=== PATIENT | female | born 1990 | race Caucasian/White ===

== ENCOUNTER 2019-03-19 21:33 | Observation (INO) | payer OTHER, SELFPAY ==
[2019-03-19 21:55] VITALS: BP 134/95; PULSE 90
[2019-03-19 22:00] VITALS: BP 133/88; PULSE 93
[2019-03-19 22:15] VITALS: BP 132/93; PULSE 90
[2019-03-19 23:00] VITALS: BMI 27.3
[2019-03-19 23:53] VITALS: TEMP 36.6
[2019-03-19 23:54] VITALS: BP 129/86; PULSE 87
--- NOTE | 2019-03-20 00:47 | OBADM ---
This patient, Rosa Sawant, admitted to the OB room Labor/Delivery/Recovery 105 for observation. Patient/family oriented to hospital policies and general routines including ID bracelet, bed and alarms, visiting hours, pain management, procedures, bathroom and other care routines, personal items, smoking policy, room service/diet, and visiting hours. Patient/Family are encouraged to report perceived risks to care and to ask questions if they do not understand what they are told or what they should do.
--- NOTE | 2019-04-02 12:06 | PM.OBTRLD ---
OB - Triage/Final Diagnosis Visit Information Reason for evaluation: threatened labor
== END 2019-03-20 00:40 | disposition home or self-care (01) ==
PROVIDERS: Admitting Provider Obstetrics & Gynecology; Visit Provider Obstetrics & Gynecology
DX: O47.1 False labor at or after 37 completed weeks of gestation (principal); Z3A.38 38 weeks gestation of pregnancy
CPT/HCPCS: G0378; G0379

== ENCOUNTER 2019-03-21 07:29 | Inpatient (IN) | payer OTHER, SELFPAY ==
[2019-03-21] VITALS (95 sets, daily range): BP systolic 92–147; BP diastolic 43–101; PULSE 77–133; RESP 16; TEMP 36.5–37.2; O2SAT 97–100; BMI 28.0
--- NOTE | 2019-03-21 07:58 | WPDOBADMIT ---
Obstetrics - Admit Note Admission Note: record reviewed. No pertinent additions to the history and/or any subsequent changes in the physical findings that are not consistent with the expected course of the were found. Additions to the history and/or subsequent changes in the physical findings follow. Here for MIL for gestational HTN at 38 3/7 wks. Cervix 4-5/50/-2 AROM with clear fluid.
[2019-03-21 08:12] LABS: Basophils Absolute Auto 0.1 K/mm3 (0.0-0.1); Basophils Percent Auto 0.5 % (0.2-1.2); Eosinophils Absolute Auto 0.2 K/mm3 (0-0.3); Eosinophils Percent Auto 2.2 % (0-4.4); Hematocrit 39.7 % (37.0-47.0); Hemoglobin 13.5 g/dL (12.0-15.0); Immature Granulocyte Absolute 0.05 K/mm3 (0.00-0.031); Immature Granulocyte Percent A 0.5 % (0-0.5); Immature Platelet Fraction Pct 16.6 % (0.9-11.2); Lymphocytes Absolute Auto 2.61 K/mm3 (0.9-3.2); Lymphocytes Percent Auto 24.4 % (18.3-44.2); Mean Corpuscular Hemoglobin 30.7 pg (26-34); Mean Corpuscular Volume 90.2 fl (80-100); Mean Platelet Volume 12.7 fl (7.4-10.4); Monocytes Absolute Auto 0.9 K/mm3 (0.1-0.6); Monocytes Percent Auto 7.9 % (2.6-8.5); Neutrophils Absolute Auto 6.9 K/mm3 (1.3-6.7); Neutrophils Percent Auto 64.5 % (45.5-73.1); Platelet Count Result 163 k/mm3 (150-375); Red Cell Distribution Width 13.2 % (11.5-14.5); White Blood Count 10.7 K/mm3 (4.5-10.0)
[2019-03-21 08:22] LABS: Alanine Aminotransferase 22 U/L (4-35); Albumin Level 4.4 g/dL (3.5-5.1); Alkaline Phosphatase 260 U/L (38-126); Aspartate Amino Transferase 37 U/L (14-36); Bilirubin,Total 0.7 mg/dL (0.2-1.3); Blood Urea Nitrogen 5 mg/dL (7-17); Calcium 11.9 mg/dL (8.4-10.2); Carbon Dioxide 23 mmol/L (22-30); Chloride 102 mmol/L (98-107); Estimated Glomerular Filt Rate 58; Glucose 74 mg/dL (65-105); Potassium 3.4 mmol/L (3.4-5.0); Sodium 137 mmol/L (137-145)
[2019-03-21] MEDS: LACTATED RINGERS 1,000 ML 125 ML IV CONT ×2 (08:23→08:54)
[2019-03-21] MEDS: ONDANSETRON INJ 4 MG/2 ML VIAL IV PUSH (08:24)
--- NOTE | 2019-03-21 08:47 | LDADM ---
This patient, Rosa Sawant, was admitted to Labor/Delivery/Recovery 109 on 03/21/19 at 07:29. Plans for labor, pain management and were discussed with patient. Patient/family oriented to hospital policies and general routines including ID bracelet, bed and alarms, visiting hours, pain management, procedures, bathroom and other care routines, personal items, smoking policy, room service/diet and guest tray routines, security routines, and visiting hours. Patient/Family are encouraged to report perceived risks to care and to ask questions if they do not understand what they are told or what they should do. See OBIX for further documentation.
--- NOTE | 2019-03-21 11:44 | PM.OBPRVD ---
OB - Delivery Note Procedure Delivery date: 03/21/19 Procedure: events: Induced HTN Intrapartal events: None Induction method: AROM and per pitocin protocol Delivery monitor: external FHT and external uterine Route of delivery: Laceration description: Periurethral - 2nd Degree Delivery repair: vicryl Specimen: Yes Estimated blood loss (mL): 100 Anesthesia type: Epidural Disposition: floor Baby Weeks of gestation at delivery: 38 Infant gender: Female presentation: vertex Placenta delivery description: Spontaneous cord vessel description: 3 Vessels score one minute: 9 score five minutes: 9
--- NOTE | 2019-03-21 11:46 | PM.DS ---
DS: Diagnosis Discharge Diagnosis (1) PIH ( induced hypertension): Code(s): O13.9 - Gestational [-induced] hypertension without significant proteinuria, unspecified trimester Status: Acute (2) (normal spontaneous vaginal delivery): Onset Date: ~03/21/19 Code(s): O80 - Encounter for full-term uncomplicated delivery Status: Acute (3) 38 weeks gestation of : Code(s): Z3A.38 - 38 weeks gestation of Status: Acute DS: Summary Time Spent with Patient Time attestation: Total time spent providing and/or coordinating discharge services: DS: Data Data Completed and Pending Labs on day of discharge: Labs from last 24 hours 03/21/19 03/21/19 03/21/19 08:04 08:04 08:04 WBC 10.7 H RBC 4.40 Hgb 13.5 Hct 39.7 MCV 90.2 MCH 30.7 MCHC 34.0 RDW 13.2 Plt Count 163 MPV 12.7 H Immature Gran % (Auto) 0.5 Neut % (Auto) 64.5 Lymph % (Auto) 24.4 [place] % (Auto) 7.9 Eos % (Auto) 2.2 Baso % (Auto) 0.5 Lymph # (Auto) 2.61 [place] # (Auto) 0.9 H Eos # (Auto) 0.2 Baso # (Auto) 0.1 Abs Immat Gran (auto) 0.05 H Absolute Neuts (auto) 6.9 H Absolute Nucleated RBC 0.0 Nucleated RBC % 0.0 % Immature Plt Fraction 16.6 H Sodium 137 Potassium 3.4 Chloride 102 Carbon Dioxide 23 BUN 5 L Creatinine 1.10 H Estim Creat Clear Calc Not Reportable Estimated GFR 58 L Glucose 74 Calcium 11.9 H Total Bilirubin 0.7 AST 37 H ALT 22 Alkaline Phosphatase 260 H Total Protein 8.0 Albumin 4.4 RPR Pending Blood Type Antibody Screen 03/21/19 08:03 WBC RBC Hgb Hct MCV MCH MCHC RDW Plt Count MPV Immature Gran % (Auto) Neut % (Auto) Lymph % (Auto) [place] % (Auto) Eos % (Auto) Baso % (Auto) Lymph # (Auto) [place] # (Auto) Eos # (Auto) Baso # (Auto) Abs Immat Gran (auto) Absolute Neuts (auto) Absolute Nucleated RBC Nucleated RBC % % Immature Plt Fraction Sodium Potassium Chloride Carbon Dioxide BUN Creatinine Estim Creat Clear Calc Estimated GFR Glucose Calcium Total Bilirubin AST ALT Alkaline Phosphatase Total Protein Albumin RPR Blood Type O Positive Antibody Screen Negative Discharge Plan Discharge Attending physician on discharge: Blanka Martinez Discharging Clinician: Waldo Adair Patient Disposition: Home, Self-Care Activity: pelvic rest Diet: regular Discharge Instructions: Education: Mom and Baby Guide Given to: Mother Follow-Up: Call your delivering provider's office for an appointment to be seen in: Call MD office for appointment Mom and baby should come to the [facility] for the follow-up appointment. Appointment Date/Time: March 23, 2019 at 8:00 am What to expect at your follow-up visit: Blood Pressure Check Physical Assessment Call [phone] if you are unable to keep your appointment time. BREAST CARE: 1. Wear a snug supportive bra. 2. For engorgement discomfort: Breast Feeding: A. Apply warm moist washcloths B. Express milk as needed to relieve engorgement C. Wear loose clothing 3. For sore nipples: A. Identify correct latch-on B. Apply warm moist washcloths before and after nursing C. Air dry nipples after nursing D. May apply [place] cream to nipples EPISIOTOMY/PERINEAL CARE: 1. Until bleeding stops, use your tiki bottle after urinating 2. Change your pad frequently throughout the day 3. You may take sitz baths several times a day (fill your bathtub with warm water and soak for 20 minutes.) Do NOT bathe in the water 4. No tub baths until seen by your physician - You may shower ACTIVITY: 1. Rest as much as possible. 2. Do not exercise or lift anything heavier than your baby (such as laundry or other children.) 3. Avoid stairs or
[2019-03-21] MEDS: IBUPROFEN 600 MG TABLET PO ×2 (13:36→20:39)
[2019-03-21] MEDS: BENZOCAINE 20% AER SPR (*SP) 56 GM CAN 1 SPRAY TOPICAL (13:37)
[2019-03-21] MEDS: WITCH HAZEL 40 PADS 1 PAD TOPICAL (13:37)
[2019-03-21] MEDS: ACETAMINOPHEN 325 MG TABLET 650 MG PO (14:49)
--- NOTE | 2019-03-21 14:55 | OBPPTRN ---
Patient transferred to post room # 1411 via wheelchair. Support person present. Oriented to unit, room, information board, rooming in, admission packet and security measures. Patient verbalizes understanding.
[2019-03-22] MEDS: IBUPROFEN 600 MG TABLET PO (04:27)
[2019-03-22 05:35] LABS: Hematocrit 27.6 % (37.0-47.0); Hemoglobin 9.4 g/dL (12.0-15.0)
[2019-03-22 08:05] VITALS: BP 129/83; PULSE 80; RESP 16; TEMP 37.3; O2SAT 99
[2019-03-22] MEDS: MULTIVIT/MIN/PREN/FOL AC/IRON TABLET 1 TAB PO (08:12)
[2019-03-22] MEDS: POLYSACCHARIDE IRON COMPLEX 150 MG CAPSULE PO (08:12)
[2019-03-22] MEDS: DOCUSATE SODIUM 100 MG CAPSULE PO (08:13)
[2019-03-22] MEDS: LANOLIN (LANSINOH) 7.5 GM CREAM 1 APPLIC TOPICAL (08:18)
[2019-03-22 10:48] LABS: Rapid Plasma Reagin Non-Reactive (NonReactive)
[2019-03-22 11:30] VITALS: BP 130/81; PULSE 82; RESP 16; TEMP 36.9; O2SAT 98
--- NOTE | 2019-03-22 13:00 | PC.NURSE ---
Consulted with patient, mother reports tenderness with feeding. Mother has latched shallow with a cradle positioning. Reviewed feeding cues, frequencies, duration of feedings, feeding elimination flow sheet, and signs of adequate intake. Reviewed positioning/alignment in cross cradle, holding breast in U hold and guided asymmetrical latch on. was unable to latch correctly. nursed eagerly, with steady draws and frequent swallowing noted. Reviewed signs of a correct latch, effective nursing and suck swallow ratio. Infant was able to maintain latch without discomfort to mother. Advised to hold breast during entire feeding to assist infant with maintaining deep latch. Nipple care reviewed. Mother wishes 24 hour discharge. Mother v is feeding as required and waking to feed if needed. has had 8 effective feedings in the past 24 hours, and is currently meeting outcomes for weight, output, jaundice and feeding frequencies. Mother states she feels confident to continue effective at home. Reviewed transition to breast milk, signs of adequate intake, and engorgement/relief. Instructed to call ICP if intake/output less than required. Reviewed regular medications mother is taking. Information provided per [facility]. Reviewed community resources on the [facility] website and in the Mom/Baby guide. Information on outpatient services provided. Mother has no further questions at this time.
[2019-03-23 07:56] VITALS: BP 138/91; PULSE 79; RESP 20; TEMP 37.1
== END 2019-03-22 14:54 | disposition home or self-care (01) | DRG 560 ==
LOC: ANHLDR 11:47 → ANHOB2 14:15
PROVIDERS: Admitting Provider Obstetrics & Gynecology Gynecology; Visit Provider Obstetrics & Gynecology Gynecology
DX: O13.4 Gestational [pregnancy-induced] hypertension without significant proteinuria, complicating childbirth (principal); Z37.0 Single live birth; Z3A.38 38 weeks gestation of pregnancy; O70.1 Second degree perineal laceration during delivery; O99.344 Other mental disorders complicating childbirth; F41.8 Other specified anxiety disorders
CPT/HCPCS: 36415; 80053; 85014; 85018; 85025; 85055; 86592; 86850; 86900; 86901; 88307; A9270; J2405; J2590; J2795; J3010; J7120

== ENCOUNTER 2020-08-19 13:29 | Emergency (ER) | payer OTHER, SELFPAY ==
--- NOTE | 2020-08-19 13:34 | ED.DENTAL ---
HPI - Dental/Oral General Stated complaint: Toothache Time Seen by Provider: 08/19/20 13:34 Source: patient and RN notes reviewed History of Present Illness HPI Narrative: Patient is a 30-year-old female who presents the urgent care with complaints of upper left dental pain. Patient states that it started on Monday after she got a piece of chicken stuck in her tooth. Patient states that she has tried flossing and taken Tylenol and ibuprofen for the pain. Patient states that she has felt a little nauseous today and thought that she was may be getting an infection . Patient denies of any fevers or vomiting. No other acute complaints. No acute distress noted. Patient aware of the plan of care. Some parts of this dictation were generated by voice recognition software and may contain typographical and/or grammatical inaccuracies. Related Data Home Medications Medication Instructions Recorded Confirmed ergocalciferol (vitamin D2) 50,000 unit PO WEEKLY 03/02/19 08/19/20 [Vitamin D2] duloxetine 30 mg PO DAILY 03/10/19 08/19/20 clonidine HCl 0.1 mg PO HS 08/19/20 08/19/20 desogestrel-ethinyl estradiol 1 tablet PO DAILY 08/19/20 08/19/20 [Isibloom] venlafaxine 150 mg PO DAILY 08/19/20 08/19/20 Allergies Allergy/AdvReac Type Severity Reaction Status Date / Time No Known Allergies Allergy Verified 08/19/20 13:43 Review of Systems Review of Systems: Narrative: CONSTITUTIONAL: Denies fever, chills, or sweats. EYES: Denies visual changes, redness, or discharge. ENT: Denies rhinorrhea, congestion, sore throat, or otalgia. Reports of upper left dental pain CARDIOVASCULAR: Denies chest pain, palpitations, or edema. RESPIRATORY: Denies cough or dyspnea. GASTROINTESTINAL: Denies abdominal pain, nausea, vomiting, or diarrhea. GENITOURINARY: Denies dysuria or hematuria. SKIN: Denies rash or itching. MUSCULOSKELETAL: Denies back pain, joint pain, or myalgia. NEUROLOGIC: Denies headache, numbness, or weakness. All other systems reviewed are negative, except as documented in HPI. [facility] Social History Social History Smoking status: Never smoker Smoking end date: 11/26/14 Substance use: never Gender identity (if verbalized by the patient): Female Spiritual care concerns: No Comments At the time of my signature, I reviewed and agree with the nursing past medical, surgical, social, and family history. There is no relevant family history pertinent to the patient complaint. Exam Narrative: Exam Narrative: GENERAL: This is a well-nourished, well-developed patient, in no apparent distress. HEAD: normocephalic, atraumatic. EYES: PERRL. Sclera clear/white. Vision is grossly intact. EARS: External ears normal NOSE: External nose normal with no obvious nasal discharge, nares without redness, no rhinorrhea. THROAT: Mucous membranes moist, posterior pharynx clear. dENTAL: [place] noted to teeth numbers 15, 14 and 13. No obvious dental abscess, mild irritation noted to the upper left gums with mild erythema NECK: Neck supple CARDIOVASCULAR: Regular rate and rhythm without murmurs, gallops, or rubs. RESPIRATORY: Clear to auscultation. Breath sounds equal bilaterally. No wheezes, rales, or rhonchi. SKIN: warm, intact with no suspicious lesions or rash, good texture and turgor. NEURO: awake, alert, and oriented to person, place and time. There were no obvious focal neurologic abnormalities. EXTREMITIES: No clubbing, cyanosis, or edema. Course Vital Signs Vital signs: Vital Signs Temperature 98.6 F 08/19/20 13:40 Pulse Rate 87 08/19/20 13:40 Respiratory Rate 18 08/19/20 13:40 Blood Pressure 113/72 08/19/20 13:40 Pulse Oximetry 98 08/19/20 13:40 Temperature 98.6 F 08/19/20 13:40 Pulse Rate 87 08/19/20 13:40 Respiratory Rate 18 08/19/20 13:40 Blood Pressure 113/72 08/19/20 13:40 Pulse Oximetry 98 08/19/20 13:40 Reviewed MDM - Dental/Oral MDM Narrative Medical decision making narrativ
[2020-08-19 13:40] VITALS: BP 113/72; PULSE 87; RESP 18; TEMP 37; O2SAT 98
== END 2020-08-19 14:00 | disposition home or self-care (01) ==
PROVIDERS: Emergency Provider Nurse Practitioner Family; PCP Physician Assistant
DX: K08.89 Other specified disorders of teeth and supporting structures (principal)
CPT/HCPCS: 99213; G0463

== ENCOUNTER 2021-11-25 12:57 | Emergency (ER) | payer OTHER, SELFPAY ==
[2021-11-25 13:21] VITALS: BP 114/85; PULSE 95; RESP 16; TEMP 36.6; O2SAT 99
--- NOTE | 2021-11-25 14:33 | PC.NURSE ---
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 CLIENT SUCCESS SPECIALIST has assessed pt, but does not have discharge instructions ready. Pt states that she will return for discharge papers after she picks up her son.
--- NOTE | 2021-11-25 14:43 | ED.URI ---
HPI - URI/Sore Throat General Chief Complaint: Upper Respiratory Infection Stated Complaint: Sore Throat Time Seen by Provider: 11/25/21 14:28 Source: patient, RN notes reviewed and old records reviewed Mode of arrival: ambulatory Limitations: no limitations History of Present Illness HPI Narrative: 31-year-old female who presents to [facility] care with complaints of sore throat since yesterday and fevers highest with 100.3F reported. Patient states she has been taking Tylenol and ibuprofen for her discomfort. Mother reports it feels like she is swallowing her left tonsil with pain sharp to the left side of her throat. Patient does have acute redness of the throat no lesions or exudates noted with minimal tonsillar swelling. Patient denies any ear pain, nasal congestion or shortness of breath. Patient reports son was diagnosed with strep 1 week ago. MD elicited complaint: cough and sore throat Onset (ago): day(s) (1) Related Data Home Medications Medication Instructions Recorded Confirmed ergocalciferol (vitamin D2) 1,250 50,000 unit PO WEEKLY 03/02/19 11/25/21 mcg (50,000 unit) capsule (Vitamin D2) duloxetine 30 mg capsule,delayed 30 mg PO DAILY 03/10/19 11/25/21 release clonidine HCl 0.1 mg tablet 0.1 mg PO HS 08/19/20 11/25/21 desogestrel 0.15 mg-ethinyl 1 tablet PO DAILY 08/19/20 11/25/21 estradiol 0.03 mg tablet (Isibloom) venlafaxine 150 mg 150 mg PO DAILY 08/19/20 11/25/21 capsule,extended release 24 hr Allergies Allergy/AdvReac Type Severity Reaction Status Date / Time No Known Allergies Allergy Verified 11/25/21 13:29 Review of Systems Review of Systems: CONSTITUTIONAL: Denies malaise, chills, sweats, positive for low grade fever. EYES: Denies visual changes, redness, or discharge. ENT: Reports rhinorrhea, congestion, sinus pain, no otalgia positive for sore throat. CARDIOVASCULAR: Denies chest pain, palpitations, or edema. RESPIRATORY: denies any cough.? Denies dyspnea. GASTROINTESTINAL: Denies abdominal pain, nausea, vomiting, diarrhea SKIN: Denies rash or itching. MUSCULOSKELETAL: Denies myalgia. NEUROLOGIC: Denies headache. All systems reviewed & are unremarkable except as noted in HPI and below PMFSH Social History Social History (Updated 11/27/21 @ 08:18 by Rochelle Lora NP) Smoking status: Former smoker Smoking end date: 11/26/14 Substance use: never Gender identity (if verbalized by the patient): Female Spiritual care concerns: No Comments At time of signature, agree with nursing past medical, surgical, social and family history. There is no relevant family history pertinent to the presenting complaint Exam Narrative: GENERAL: Well-appearing, well-nourished, and in no acute distress. HEAD: Normocephalic, atraumatic. EYES: PERRLA and EOMI. ENT: Nares clear, no rhinorrhea or epistaxis. Mucous membranes moist.TM's normal with good light reflex, throat red with left tonsil swollen no lesions or exudates. NECK: Supple.lymphadenopathy noted CHEST: Clear to auscultation. No respiratory distress.SAO2 99% on room air HEART: Regular rate and rhythm. No murmur heard. Normal peripheral pulses. ABDOMEN: Soft, nontender, nondistended, normal active bowel sounds. EXTREMITIES: Normal range of motion. No edema. SKIN: Warm, dry, no rash. NEURO: No focal deficits. Alert and oriented x3. Course Course Emergency Course: Patient is aware of diagnosis, understands and agrees to treatment plan.? Anticipatory guidance given.? Patient agrees to follow-up as directed and is aware of reasons to seek care at the emergency department. Portions of this record may have been created with voice recognition software Level of Care: Express Care Visit Vital Signs Vital signs: Vital Signs Temperature 36.6 C 11/25/21 13:21 Pulse Rate 95 11/25/21 13:21 Respiratory Rate 16 11/25/21 13:21 Blood Pressure 114/85 11/25/21 13:21 Pulse Oximetry 99 11/25/21 13:21 Oxy
--- NOTE | 2021-11-25 15:48 | PC.NURSE ---
Pt returned for discharge papers. Instructions reviewed with Pt. No further questions.
== END 2021-11-25 14:38 | disposition home or self-care (01) ==
PROVIDERS: Emergency Provider Registered Nurse; PCP Physician Assistant
DX: J03.90 Acute tonsillitis, unspecified (principal); Z87.891 Personal history of nicotine dependence
CPT/HCPCS: 87081; 87880; 99213; G0463